=== PATIENT | male | born 1945 | race African-American/Black ===

== ENCOUNTER 2019-07-02 23:01 | Emergency (ER) | payer SELFPAY ==
[~2019-07-02] VITALS: Ht 180.3 cm; Wt 72.0 kg
[2019-07-03] MEDS ORDERED: KETOROLAC 30MG/ML VIAL IM ONE
[2019-07-03] MEDS ORDERED: METHOCARBAMOL 500MG TABLET PO ONE (00:15)
[2019-07-03] MEDS ORDERED: HYDROCODONE/ACETAMINOPHEN 5/325MG TABLET PO ONE (00:15)
[2019-07-03 00:59] LABS: CHLORIDE 105 mEq/L (98-107)
[2019-07-03 02:03] VITALS: BP 135/78
== END 2019-07-03 02:04 | disposition home or self-care (01) ==
LOC: ER 23:01
DX: M62.830 Muscle spasm of back (principal); R03.0 Elevated blood-pressure reading, without diagnosis of hypertension
CPT/HCPCS: 36415; 72100; 80048; 96372; 99284; J1885